=== PATIENT | female | born 1945 | race Caucasian/White ===

== ENCOUNTER 2018-01-02 23:30 | Observation (INO) | payer MEDICARE ==
[2018-01-02 23:57] VITALS: BP 128/76
[2018-01-03] MEDS ORDERED: ASPIRIN 81M81 MG/TA2 PO (01:07)
[2018-01-03] MEDS ORDERED: LIPITOR 10M10 MG/TAB PO (01:08)
[2018-01-03 03:00] VITALS: BP 116/54
[2018-01-03 06:26] VITALS: BP 148/68
[2018-01-03 06:53] LABS: HEMATOCRIT 39.4 % (37.0-47.0); HEMOGLOBIN 12.7 g/dL (12.5-16.0); LYMPH# 1.3 (1.50-4.00); MEAN CELL VOLUME 81 fl (78-100); MEAN CORPUSCULAR HEMOGLOBIN 26 pg (27-31); MEAN CORPUSCULAR HGB CONC 32 g/dL (33-37); MEAN PLATELET VOLUME 8.6 fl (7.4-10.4); MONO # 0.8 (0.20-0.80); NEU # 7.6 (1.40-6.50); PLATELET COUNT 185 K/mm3 (130-400); RED BLOOD COUNT 4.85 M/mm3 (4.10-5.30); RED CELL DISTRIBUTION WIDTH 14.4 % (11.5-14.5); WHITE BLOOD COUNT 9.8 K/mm3 (4.8-10.8)
[2018-01-03 07:03] LABS: BUN/CREATININE RATIO 26.4 (6.0-26.0); CALCIUM 8.5 mg/dL (8.4-10.2); POTASSIUM 4.5 mmol/L (3.6-5.0)
[2018-01-03 11:13] VITALS: BP 132/54; BP 99/38
[2018-01-03 15:30] VITALS: BP 153/64
[2018-01-03 18:42] VITALS: BP 137/62
[2018-01-05] MEDS ORDERED: LEVAQUIN 750MG750 M1 PO (15:49)
[2018-01-05] MEDS ORDERED: ALBUTEROL S5 MG/1 ML IH (15:50)
[2018-01-05] MEDS ORDERED: LORCET PLUS1 TAB PO (15:51)
[2018-01-05] MEDS ORDERED: AEROSOL THERAPY1 DEV INH (15:52)
== END 2018-01-03 16:15 | disposition other institution (70) ==
LOC: MED/SURG 23:30
PROVIDERS: ADMIT Nurse Practitioner Primary Care
DX: J90 Pleural effusion, not elsewhere classified (principal); R09.02 Hypoxemia; I10 Essential (primary) hypertension; E78.5 Hyperlipidemia, unspecified; Z79.82 Long term (current) use of aspirin; F17.210 Nicotine dependence, cigarettes, uncomplicated
CPT/HCPCS: G0378; J1650; J1885; J2270; J2405